=== PATIENT | female | born 2005 | race Caucasian/White ===

== ENCOUNTER 2024-06-23 19:58 | Emergency (ER) | payer MEDICAID ==
[~2024-06-23] VITALS: Ht 157.5 cm; Wt 62.6 kg
[2024-06-23 20:25] VITALS: BP_SYST 115; PULSE 77; RESP 18; TEMP 98.1; O2SAT 100
[2024-06-23 20:40] LABS: BILIRUBIN,URINE NEGATIVE (NEGATIVE); BLOOD, URINE NEGATIVE (NEGATIVE); CLARITY/URINE CLEAR (CLEAR); COLOR,URINE YELLOW (YELLOW); GLUCOSE,URINE NEGATIVE (NEGATIVE); KETONES,URINE TRACE (NEGATIVE); LEUKOCYTE ESTERASE ,URINE NEGATIVE (NEGATIVE); NITRITE, URINE NEGATIVE (NEGATIVE); PROTEIN URINE 2+ (NEGATIVE); UROBILINOGEN,URINE 0.2 (0.2-1.0)
[2024-06-23 20:47] LABS: BACTERIA,URINE RARE /HPF (None Seen); MUCUS,URINE None Seen /LPF (None Seen); RBC,URINE NONE SEEN /HPF (0-3); WBC,URINE 0-3 /HPF (0-3)
[2024-06-23] MEDS ORDERED: NAPR-1172 PO (22:27)
[2024-06-23 22:28] VITALS: BP_SYST 115; PULSE 77; RESP 18; TEMP 98.1; O2SAT 100
== END 2024-06-23 22:28 | disposition home or self-care (01) ==
LOC: SED 19:58
DX: S33.8XXA Sprain of other parts of lumbar spine and pelvis, initial encounter (principal); Z79.899 Other long term (current) drug therapy; X58.XXXA Exposure to other specified factors, initial encounter; Y93.B9 Activity, other involving muscle strengthening exercises; Y92.89 Other specified places as the place of occurrence of the external cause; Y99.8 Other external cause status
CPT/HCPCS: 81000; 81001; 81015; 99283